=== PATIENT | male | born 1975 | race Caucasian/White ===

== ENCOUNTER 2018-02-23 12:46 | Emergency (ER) | payer SELFPAY ==
[2018-02-23 12:58] VITALS: BP 137/98
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
== END 2018-02-23 13:08 | disposition home or self-care (01) ==
LOC: ER 13:01
DX: F10.920 Alcohol use, unspecified with intoxication, uncomplicated (principal)
CPT/HCPCS: 99281